=== PATIENT | female | born 1965 | race Caucasian/White ===

== ENCOUNTER 2018-07-09 18:40 | Emergency (ER) | payer MEDICARE, OTHER ==
[~2018-07-09] VITALS: Ht 182.9 cm; Wt 113.4 kg
[2018-07-09 19:14] VITALS: BP 134/87
[2018-07-09] MEDS ORDERED: lamoTRIgine 25 MG TAB PO ONE (21:30)
[2018-07-09] MEDS ORDERED: lamoTRIgine 100 MG TAB PO ONE (21:30)
== END 2018-07-09 23:24 | disposition home or self-care (01) ==
LOC: ER 18:40
DX: F41.9 Anxiety disorder, unspecified (principal); Z88.0 Allergy status to penicillin; Z76.0 Encounter for issue of repeat prescription